=== PATIENT | female | born 1995 | race African-American/Black ===

== ENCOUNTER 2021-08-03 10:09 | Emergency (ER) | payer MEDICAID ==
[~2021-08-03] VITALS: Ht 167.6 cm; Wt 60.0 kg
[2021-08-03] MEDS ORDERED: ONDANSETRON 4MG ODT PO ONE (11:00)
[2021-08-03 11:52] LABS: BASOPHILS % 0.3 % (0.0-2.0); EOSINOPHILS % 0.1 % (0.0-5.0); HEMATOCRIT. 37.1 % (36.0-48.0); HEMOGLOBIN. 11.8 g/dL (12.0-16.0); LYMPHOCYTES % 14.7 % (20.0-50.0); MEAN CORPUSCULAR VOLUME 84.8 fL (81.0-99.0); MEAN PLATELET VOLUME 8.4 fl (7.4-10.4); MONOCYTES % 6.1 % (2.0-8.0); NEUTROPHILS % 78.8 % (40.0-76.0); PLATELET 252 x1000/uL (130-400); RED BLOOD CELL COUNT 4.38 mill/uL (4.2-5.4); RED CELL DISTRIBUTION WIDTH 18.9 % (11.6-14.6)
[2021-08-03 12:05] LABS: CHLORIDE 109 mEq/L (98-107)
[2021-08-03 12:38] LABS: HCG SCREEN NEGATIVE
[2021-08-03] MEDS ORDERED: HYDROCODONE/ACETAMINOPHEN 5/325MG TABLET PO ONE (13:00)
[2021-08-03 15:00] VITALS: BP 131/79
[2021-08-03] MEDS ORDERED: EMTR1TAB11 MT (15:40)
[2021-08-03] MEDS ORDERED: LEVO1.5T37 MT (15:40)
[2021-08-03] MEDS ORDERED: RALT400T MT (15:40)
[2021-08-03] MEDS ORDERED: ACETAMINOPHEN 325MG TABLET PO ONE (15:45)
[2021-08-03] MEDS ORDERED: IBUPROFEN 400MG TABLET PO ONE (15:45)
== END 2021-08-03 16:00 | disposition home or self-care (01) ==
LOC: ER 10:09
DX: S06.899A Other specified intracranial injury with loss of consciousness of unspecified duration, initial encounter (principal); M25.531 Pain in right wrist; S80.01XA Contusion of right knee, initial encounter; M79.18 Myalgia, other site; T74.21XA Adult sexual abuse, confirmed, initial encounter; R45.83 Excessive crying of child, adolescent or adult; X99.0XXA Assault by sharp glass, initial encounter; Y93.89 Activity, other specified; Y92.89 Other specified places as the place of occurrence of the external cause
CPT/HCPCS: 36415; 73110; 73562; 80053; 84703; 85025; 99285; Q0162